=== PATIENT | male | born 1975 | race Caucasian/White ===

== ENCOUNTER 2024-02-11 05:48 | Emergency (ER) | payer MEDICAID, OTHER ==
[~2024-02-11] VITALS: Ht 185.4 cm; Wt 122.7 kg
[2024-02-11 05:59] VITALS: BP 182/116; PULSE 99; RESP 18; O2SAT 96
== END 2024-02-11 07:40 | disposition left against medical advice (07) ==
LOC: ER 05:48 → EEVIPCON 05:48 → ER 06:55
DX: S01.112A Laceration without foreign body of left eyelid and periocular area, initial encounter (principal); I25.2 Old myocardial infarction; Z85.9 Personal history of malignant neoplasm, unspecified; Z88.0 Allergy status to penicillin; Y08.89XA Assault by other specified means, initial encounter; Y93.89 Activity, other specified; Y92.89 Other specified places as the place of occurrence of the external cause; Y99.8 Other external cause status